=== PATIENT | male | born 1945 | race Caucasian/White ===

== ENCOUNTER 2020-11-29 14:18 | Inpatient (IN) | payer OTHER ==
[~2020-11-29] VITALS: Ht 180.3 cm; Wt 110.2 kg
[~2020-11-29 14:18] MED LIST: MEDROL 4MG DOSEP4 MG PO; PREDNISONE 10MG10 MG PO
[2020-11-29 15:38] LABS: BASOPHIL 0.8 % (0-2); EOSINOPHIL 1.5 % (0-7); HCT 42.1 % (42.0-52.0); HGB 13.8 g/dl (13.2-18.0); LYMPHOCYTE 20.6 % (15-48); MCH 28.2 pg (25.0-31.0); MCHC 32.8 g/dL (32.0-36.0); MCV 86.1 fL (78.0-100.0); MONOCYTE 7.8 % (0-12); MPV 9.1 fL (6.0-9.5); NRBC 0; PLT 322 K/uL (150-400); RBC 4.89 M/uL (4.70-6.00); RDW 16.7 % (11.5-14.0); WBC 14.5 K/uL (4.0-10.5)
[2020-11-29 15:50] LABS: ALBUMIN 3.1 g/dL (3.4-5.0); BILIRUBIN - TOTAL 0.6 mg/dL (0.2-1.0); BUN/CREAT RATIO (CALC) 21.1 RATIO; CREATININE 0.95 mg/dL (0.67-1.17); GLOBULIN (CALCULATION) 5.6 g/dL; POTASSIUM 4.1 mmol/L (3.5-5.1); TOTAL PROTEIN 8.7 g/dL (6.4-8.2)
[2020-11-29 15:57] LABS: LACTIC ACID 1.9 mmol/L (0.4-1.9)
[2020-11-29 15:58] LABS: PRO-BNP 148 pg/mL (<450)
[2020-11-29 18:14] LABS: BILIRUBIN NEGATIVE (NEGATIVE); BLOOD 1+ Ery/uL (NEGATIVE); CLARITY CLEAR (CLEAR); COLOR YELLOW (YELLOW); GLUCOSE (U) NORMAL (NORMAL); LEUKOCYTES NEGATIVE Leu/uL (NEGATIVE); NITRITE NEGATIVE (NEGATIVE); PROTEIN NEGATIVE (NEGATIVE); UROBILINOGEN 0.2 mg/dL (0.2-1.0)
[2020-11-29 18:15] LABS: URINARY WBC RARE
[2020-11-29 18:16] LABS: SQUAMOUS EPITHELIAL CELLS RARE
[2020-11-29] MEDS ORDERED: LASIX20 MG PO (19:33)
[2020-11-29] MEDS ORDERED: UROCIT-K10 MEQ PO (19:33)
[2020-11-29] MEDS ORDERED: ZINC30 M1 PO (19:34)
[2020-11-29] MEDS ORDERED: D3-200050 MCG PO (19:34)
[2020-11-29] MEDS ORDERED: ASCORBIC ACID500 MG PO (19:35)
[2020-11-29] MEDS ORDERED: MUCINEX 600MG600 MG PO (19:35)
[2020-11-29] MEDS ORDERED: ATENOLOL25 MG PO (19:36)
[2020-11-29] MEDS ORDERED: VENTOLIN (2.5 MG/3 M NEB (19:37)
[2020-11-29] MEDS ORDERED: VENTOLIN HFA IN18 GM INH (19:38)
[2020-11-30 05:57] LABS: BASOPHIL 0.3 % (0-2); EOSINOPHIL 0 % (0-7); HCT 39.8 % (42.0-52.0); HGB 12.9 g/dl (13.2-18.0); LYMPHOCYTE 12.8 % (15-48); MCH 27.8 pg (25.0-31.0); MCHC 32.4 g/dL (32.0-36.0); MCV 85.8 fL (78.0-100.0); MONOCYTE 3.4 % (0-12); MPV 9.1 fL (6.0-9.5); NRBC 0; PLT 298 K/uL (150-400); RBC 4.64 M/uL (4.70-6.00); RDW 16.3 % (11.5-14.0); WBC 9.6 K/uL (4.0-10.5)
[2020-11-30 06:32] LABS: ALBUMIN 2.9 g/dL (3.4-5.0); BILIRUBIN - TOTAL 0.5 mg/dL (0.2-1.0); BUN/CREAT RATIO (CALC) 23.7 RATIO; CREATININE 0.97 mg/dL (0.67-1.17); GLOBULIN (CALCULATION) 4.5 g/dL; POTASSIUM 4.4 mmol/L (3.5-5.1); TOTAL PROTEIN 7.4 g/dL (6.4-8.2)
[2020-11-30 06:54] LABS: CKMB 0.5 ng/mL (0.0-3.6)
--- NOTE | 2020-11-30 13:23 | NUR ---
PT. RESIDES AT HOME WITH SPOUSE. 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 PT. IS CURRENT WITH [employer] . 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
[2020-12-01 07:48] LABS: BASOPHIL 0.3 % (0-2); EOSINOPHIL 0.6 % (0-7); HCT 41.1 % (42.0-52.0); HGB 13.2 g/dl (13.2-18.0); LYMPHOCYTE 18.1 % (15-48); MCHC 32.1 g/dL (32.0-36.0); MCV 87.1 fL (78.0-100.0); MONOCYTE 7.2 % (0-12); MPV 8.9 fL (6.0-9.5); NEUTROPHIL 72.3 % (41-80); NRBC 0; PLT 326 K/uL (150-400); RBC 4.72 M/uL (4.70-6.00); RDW 16.6 % (11.5-14.0); WBC 16.4 K/uL (4.0-10.5)
[2020-12-01 08:19] LABS: ALBUMIN 3.1 g/dL (3.4-5.0); BILIRUBIN - TOTAL 0.4 mg/dL (0.2-1.0); BUN/CREAT RATIO (CALC) 28.6 RATIO; CREATININE 0.91 mg/dL (0.67-1.17); GLOBULIN (CALCULATION) 5.4 g/dL; POTASSIUM 4.1 mmol/L (3.5-5.1); TOTAL PROTEIN 8.5 g/dL (6.4-8.2)
[2020-12-02 04:02] LABS: BASOPHIL 0.3 % (0-2); EOSINOPHIL 0.3 % (0-7); HCT 38.6 % (42.0-52.0); HGB 12.8 g/dl (13.2-18.0); LYMPHOCYTE 13.4 % (15-48); MCH 28.4 pg (25.0-31.0); MCHC 33.2 g/dL (32.0-36.0); MCV 85.8 fL (78.0-100.0); MONOCYTE 7.5 % (0-12); MPV 8.9 fL (6.0-9.5); NEUTROPHIL 76.2 % (41-80); NRBC 0; PLT 330 K/uL (150-400); RDW 16.5 % (11.5-14.0); WBC 14.5 K/uL (4.0-10.5)
[2020-12-02 04:23] LABS: BUN/CREAT RATIO (CALC) 33.8 RATIO; CREATININE 0.74 mg/dL (0.67-1.17); POTASSIUM 3.9 mmol/L (3.5-5.1)
[2020-12-03 05:46] LABS: BASOPHIL 0.4 % (0-2); EOSINOPHIL 0.4 % (0-7); HGB 12.7 g/dl (13.2-18.0); LYMPHOCYTE 16.3 % (15-48); MCH 28.5 pg (25.0-31.0); MCHC 33.4 g/dL (32.0-36.0); MCV 85.4 fL (78.0-100.0); MONOCYTE 9.6 % (0-12); MPV 8.9 fL (6.0-9.5); NEUTROPHIL 71.1 % (41-80); NRBC 0; PLT 313 K/uL (150-400); RBC 4.45 M/uL (4.70-6.00); RDW 16.7 % (11.5-14.0); WBC 16.7 K/uL (4.0-10.5)
[2020-12-03 05:58] LABS: BUN/CREAT RATIO (CALC) 30.3 RATIO; CREATININE 0.76 mg/dL (0.67-1.17); MAGNESIUM 1.5 mg/dL (1.8-2.4); POTASSIUM 3.7 mmol/L (3.5-5.1)
[2020-12-04 05:55] LABS: BASOPHIL 0.5 % (0-2); EOSINOPHIL 0.3 % (0-7); HCT 38.9 % (42.0-52.0); HGB 12.8 g/dl (13.2-18.0); LYMPHOCYTE 17.1 % (15-48); MCH 28.5 pg (25.0-31.0); MCHC 32.9 g/dL (32.0-36.0); MCV 86.6 fL (78.0-100.0); MONOCYTE 9.4 % (0-12); NEUTROPHIL 68.8 % (41-80); NRBC 0; PLT 305 K/uL (150-400); RBC 4.49 M/uL (4.70-6.00); RDW 16.8 % (11.5-14.0); WBC 14.6 K/uL (4.0-10.5)
[2020-12-04 06:47] LABS: ALBUMIN 2.9 g/dL (3.4-5.0); BILIRUBIN - TOTAL 0.5 mg/dL (0.2-1.0); BUN/CREAT RATIO (CALC) 32.9 RATIO; CREATININE 0.7 mg/dL (0.67-1.17); GLOBULIN (CALCULATION) 4.6 g/dL; POTASSIUM 4.1 mmol/L (3.5-5.1); TOTAL PROTEIN 7.5 g/dL (6.4-8.2)
[2020-12-04] MEDS ORDERED: TRELEGY ELLIPT1 EAC1 INH (11:25)
[2020-12-04] MEDS ORDERED: CEFDINIR300 MG PO (11:31)
[2020-12-04] MEDS ORDERED: PREDNISONE 20MG20 MG PO (11:31)
[2020-12-04] MEDS ORDERED: AZITHROMYCIN250 MG PO (11:32)
== END 2020-12-04 13:35 | disposition home health service (06) | DRG 871 ==
LOC: FER 14:18 → FMS 17:23
PROVIDERS: Internal Medicine; Nurse Practitioner; ADMIT Allergy & Immunology Allergy
DX: A41.9 Sepsis, unspecified organism (principal); J18.9 Pneumonia, unspecified organism; J96.21 Acute and chronic respiratory failure with hypoxia; J44.1 Chronic obstructive pulmonary disease with (acute) exacerbation; J44.0 Chronic obstructive pulmonary disease with (acute) lower respiratory infection; R65.20 Severe sepsis without septic shock; Z20.822 Contact with and (suspected) exposure to COVID-19; I10 Essential (primary) hypertension; C61 Malignant neoplasm of prostate; Z88.8 Allergy status to other drugs, medicaments and biological substances; Z91.038 Other insect allergy status; Z98.890 Other specified postprocedural states; Z79.899 Other long term (current) drug therapy; Z99.81 Dependence on supplemental oxygen; Z86.16 Personal history of COVID-19
CPT/HCPCS: 36415; 71045; 80048; 80053; 81001; 82553; 83605; 83735; 83880; 84484; 85025; 87040; 87070; 87077; 87186; 87205; 93005; 94640; 94660; 94668; 94760; J0456; J0696; J1650; J2543; J2930; J3475; J7050; J7512; U0002